=== PATIENT | female | born 1950 | race Caucasian/White ===

== ENCOUNTER 2018-06-27 20:57 | Emergency (ER) | payer MEDICARE, MEDICAID ==
[2018-06-27 21:02] VITALS: BMI 33.3
[2018-06-27 21:06] VITALS: TEMP 98.3
[2018-06-27 21:52] LABS: BASO # 0.05 K/mm3 (0.0-2.0); BASO % 1.1 % (0.0-3.0); EOS # 0.1 (0.0-0.7); EOS % 2.6 % (1.5-5.0); HEMOGLOBIN 11.7 g/dL (12.0-16.0); LYMPH # 2.5 (1.2-3.4); LYMPH % 54.1 % (22.0-35.0); MEAN CELL VOLUME 83.5 fl (80.0-105.0); MEAN CORPUSCULAR HEMOGLOBIN 26.8 pg (25.0-35.0); MEAN CORPUSCULAR HGB CONC 32.1 g/dl (31.0-37.0); MEAN PLATELET VOLUME 11.3 fl (7.0-11.0); MONO # 0.3 (0.1-0.6); MONO % 5.4 % (1.0-6.0); RBC 4.37 10^6/uL (3.5-6.1); RED CELL DISTRIBUTION WIDTH 13.9 % (11.5-14.5); WHITE BLOOD COUNT 4.6 10^3/uL (4.5-11.0)
--- NOTE | 2018-06-27 21:58 | ED PDOC ---
Arrival/HPI - General Chief Complaint: High Blood Pressure Time Seen by Provider: 06/27/18 21:03 Historian: Patient - History of Present Illness Narrative History of Present Illness (Text): 06/27/18 21:55 68 year old female, whose past medical history includes hypertension, presents to the emergency department for evaluation of high blood pressure. Patient states she began feeling a headache and feeling faint, after fasting until 16:00 yesterday, for blood work. Patient informs she has felt symptoms of nausea as well since then. Patient informs of some ringing in the ears. Patient denies any fevers, chills, shortness of breath, cough, abdominal pain, vomiting, diarrhea, back pain, neck pain, or any other complaints. Time/Duration: 24 hours Symptom Onset: Gradual Symptom Course: Unchanged Quality: Pressure Activities at Onset: Light, Eating Context: Home Past Medical History - Provider Review Nursing Documentation Reviewed: Yes - Infectious Disease Hx of Infectious Diseases: None - Reproductive Menopause: Yes - Cardiac Hx Cardiac Arrhythmia: Yes (afib) Hx Hypertension: Yes - Pulmonary Hx Respiratory Disorders: No - Neurological Hx Neurological Disorder: Yes (Vertigo) - HEENT Hx HEENT Disorder: No - Renal Hx Renal Disorder: No - Endocrine/Metabolic Hx Endocrine Disorders: No - Hematological/Oncological Hx Hepatitis A: Yes Hx Hepatitis B: Yes - Integumentary Hx Dermatological Disorder: No - Musculoskeletal/Rheumatological Hx Falls: No - Gastrointestinal Hx Gastrointestinal Disorders: No - Genitourinary/Gynecological Hx Genitourinary Disorders: No - Psychiatric Hx Psychophysiologic Disorder: No Hx Substance Use: No - Past Surgical History Past Surgical History: Non-Contributing - Surgical History Hx Joint Replacement: Yes (Right Knee) - Suicidal Assessment Feels Threatened In Home Enviroment: No Family/Social History - Physician Review Nursing Documentation Reviewed: Yes Family/Social History: No Known Family HX Smoking Status: Never Smoked Hx Alcohol Use: No Hx Substance Use: No Allergies/Home Meds Allergies/Adverse Reactions: Allergies No Known Allergies Allergy (Verified 06/27/18 21:02) Home Medications: Home Meds Medication Instructions Recorded Confirmed Bisoprolol [Zebeta] 5 mg PO DAILY 06/27/18 06/27/18 Famotidine [Pepcid] 40 mg PO DAILY 06/27/18 06/27/18 Gabapentin [Neurontin] 100 mg PO BID 06/27/18 06/27/18 Losartan Potassium 100 mg PO DAILY 06/27/18 06/27/18 Montelukast Sodium [Singulair] 10 mg PO DAILY 06/27/18 06/27/18 Omeprazole 20 mg PO DAILY 06/27/18 06/27/18 Rivaroxaban [Xarelto] 20 mg PO DAILY 06/27/18 06/27/18 amLODIPine [Norvasc] 5 mg PO HS 06/27/18 06/27/18 Review of Systems - Physician Review All systems were reviewed & negative as marked: Yes - Review of Systems Constitutional: absent: Fevers, Night Sweats Respiratory: absent: SOB, Cough Gastrointestinal: Nausea. absent: Abdominal Pain, Diarrhea, Vomiting Musculoskeletal: absent: Back Pain, Neck Pain Neurological: Headache, Dizziness Physical Exam - Physical Exam Narrative Physical Exam (Text): 06/27/18 22:00 Gen: VS reviewed, alert, well developed, well nourished, nontoxic, mild distress. ENT: normal pharynx. Eye: EOMI, PERRL. Neck: no JVD, supple, no adenopathy. CV: Bradycardic, regular rhythm, no rubs, no murmur, no gallops, S1, S2, pulses equal and strong. Pulm: no distress, clear to auscultation, no wheeze, no rhonchi, breath sounds equal, no rales. Abd: soft, nontender, no guarding, no rebound, no rigidity, normal bowel sounds. Ext: no edema. Skin: good color, no rash, no cyanosis. Psych: responds appropriately to questions, normal affect. Neuro: oriented x 3, CN2-12 intact grossly, motor intact, sensation intact. Vital Signs Reviewed: Yes Vital Signs Temp Pulse Resp BP Pulse Ox 06/27/18 21:25 54 L 18 131/82 96 06/27/18 21:04 98.3 F 53 L 16 204/86 H 97 Temperature: Afebrile Blood Pressure: Hypertensive Pulse: Bradycardic Respiratory Rate: Normal Appearance: Positive for: Well-Appearing, Non-Toxic, Comfortable Pain Distress: None Mental Status: Positive for: Alert and Oriented X 3 Medical Decision Making ED Course and Treatment: 06/27/18 22:01 Impression: 68 year old female presents with headache, dizziness, and nausea. Plan: -- CT Head -- EKG -- CMP, Trop -- Reassess and disposition Prior Visits: Notes and results from previous visits were reviewed. Progress Notes: 06/28/18 00:16 patient seen for nonspecific dizziness where she describes her symptoms first as feeling faint and another time as abnormal motion sensation. Patient has not vomiting during Ed course, she states that she has experienced vertigo in the past. With the ringing in both ears it possible that there is a inner ear dysfunction and it was recommended for the patient to follow up with ear,nose,throat doctor. There are no acute physical exam findings that suggest CVA. 06/28/18 00:18 - RAD Interpretation Narrative RAD Interpretations (Text): 06/27/18 23:26 CT Head without Intravenous Contrast. CLINICAL HISTORY: HEADACHE TECHNIQUE: Axial computed tomography images of the head/brain without intravenous contrast. 894.89 mGy-cm COMPARISON: None provided. FINDINGS: BRAIN Chronic periventricular and subcortical microvascular disease is seen. VENTRICLES: There is generalized parenchymal atrophy noted as demonstrated by symmetrical dilatation of ventricles and sulci. ORBITS: The orbits are unremarkable. SINUSES AND MASTOIDS: The paranasal sinuses and mastoid air cells are clear. BONES: No fracture. SOFT TISSUES: Unremarkable. MISCELLANEOUS: No acute intracranial pathology. IMPRESSION: 1. There is generalized parenchymal atrophy noted as demonstrated by symmetrical dilatation of ventricles and sulci. 2. Chronic periventricular and subcortical microvascular disease is seen. 3. No acute intracranial pathology. Radiology Orders: 06/27/18 21:28 HEAD W/O CONTRAST [CT] Stat Operations Section Manager: Radiologist - EKG Interpretation EKG Interpretation (Text): 06/27/18 22:12 2118: sinus erickson at 55 bpm, nml qrs, nml axis, no acute sttw abn Interpreted by ED Physician: Yes - Scribe Statement The provider has reviewed the documentation as recorded by the Scribe Isael Murray All medical record entries made by the Scribe were at my direction and personally dictated by me. I have reviewed the chart and agree that the record accurately reflects my personal performance of the history, physical exam, medical decision making, and the department course for this patient. I have also personally directed, reviewed, and agree with the discharge instructions and disposition. Disposition/Present on Arrival - Present on Arrival Any Indicators Present on Arrival: No History of DVT/PE: No History of Uncontrolled Diabetes: No Urinary Catheter: No History of Decub. Ulcer: No History Surgical Site Infection Following: None - Disposition Have Diagnosis and Disposition been Completed?: Yes Diagnosis: Vertigo Disposition: HOME/ ROUTINE Disposition Time: 00:19 Patient Plan: Discharge Condition: STABLE Discharge Instructions (ExitCare): Vertigo (a Type of Dizziness) Additional Instructions: return for any new or worsening symptoms. follow up with a ear, nose,throat doctor. Prescriptions: Meclizine [Meclizine*] 25 mg PO TID #15 tab Referrals: Ronak Armando MD [Primary Care Provider] - Follow up with primary Carlos Gilbert DO [Staff Provider] - Follow up with primary Forms: [employer] ([place]ian)
[2018-06-27 21:59] LABS: ALB/GLOB RATIO 1.2 (1.1-1.8); ALBUMIN 3.9 g/dL (3.0-4.8); ALT/SGPT 16 U/L (7-56); AST/SGOT 32 U/L (14-36); BLOOD UREA NITROGEN 17 mg/dL (7-21); CALCIUM 10.4 mg/dL (8.4-10.5); GFR NON-AFRICAN AMERICAN > 60; INR 1.25; PARTIAL THROMBOPLASTIN TIME 40.3 Seconds (26.9-38.3); PROTHROMBIN TIME 13.9 SECONDS (9.4-12.5)
[2018-06-27 22:10] LABS: TROPONIN I < 0.01 ng/mL
[2018-06-27 23:25] VITALS: RESP 18
[2018-06-28 01:04] VITALS: BP 140/62; PULSE 56; O2SAT 97
--- NOTE | 2018-06-28 10:45 | CT ---
Date of service: 06/27/2018 PROCEDURE: CT HEAD WITHOUT CONTRAST. HISTORY: headache COMPARISON: None available. TECHNIQUE: Axial computed tomography images were obtained through the head/brain without intravenous contrast. Radiation dose: Total exam DLP = 894.89 mGy-cm. This CT exam was performed using one or more of the following dose reduction techniques: Automated exposure control, adjustment of the mA and/or kV according to patient size, and/or use of iterative reconstruction technique. FINDINGS: HEMORRHAGE: No intracranial hemorrhage. BRAIN: No mass effect or edema. No atrophy or chronic microvascular ischemic changes. VENTRICLES: Unremarkable. No hydrocephalus. CALVARIUM: Unremarkable. PARANASAL SINUSES: Unremarkable as visualized. No significant inflammatory changes. MASTOID AIR CELLS: Unremarkable as visualized. No inflammatory changes. OTHER FINDINGS: The report concurs with the preliminary [facility] report IMPRESSION: No acute intracranial findings
--- NOTE | 2018-06-28 17:37 | CARD ---
APPROVED REPORT Date of service: 06/27/2018 EKG Measurement Heart [id number] PA 180P18 [id number] <Conclusion> Sinus bradycardia Nonspecific ST-T changes Abnormal ECG
== END 2018-06-28 00:25 | disposition home or self-care (01) ==
LOC: ED 20:57
DX: R42 Dizziness and giddiness (principal); I10 Essential (primary) hypertension; I48.91 Unspecified atrial fibrillation

== ENCOUNTER 2018-07-25 06:46 | Outpatient (CLI) | payer MEDICARE, MEDICAID | END 2018-07-25 06:47 | disposition home or self-care (01) | LOC: CARDIO 06:46 | DX: R07.9 Chest pain, unspecified (principal) ==